=== PATIENT | female | born 1940 | race Caucasian/White ===

== ENCOUNTER 2023-02-24 10:58 | Emergency (ER) | payer OTHER ==
[~2023-02-24] VITALS: Ht 160 cm; Wt 78.5 kg
[~2023-02-24 10:58] MED LIST: AMIT25 PO; ATEN25 PO; CETI10 PO; FURO20 PO; HYDHCL25 PO; LORA10 PO; METPRE4DP PO; OMEP20ER PO; POTCHL20ER PO; SERT50 PO; Zocor20 MG PO
[2023-02-24 11:38] LABS: BASOPHILS ABSOLUTE AUTO 0.01 K/mm3 (0.00-0.23); BASOPHILS PERCENT AUTO 0 % (0-2); EOSINOPHILS ABSOLUTE AUTO 0.07 K/mm3 (0.00-0.68); EOSINOPHILS PERCENT AUTO 1 % (0-6); Hematocrit 40.4 % (33.0-51.0); Hemoglobin 13.4 g/dL (11.5-16.0); IMMATURE GRAN ABSOLUTE AUTO 0.02 K/mm3 (0.00-0.10); IMMATURE GRAN PERCENT AUTO 0 % (0-1); LYMPHOCYTES ABSOLUTE AUTO 0.99 K/mm3 (0.84-5.20); LYMPHOCYTES PERCENT AUTO 15 % (21-46); MONOCYTES PERCENT AUTO 8 % (4-13); Mean Corpuscular HGB 30.7 pg (26.0-34.0); Mean Corpuscular HGB Conc 33.2 g/dL (31.5-36.5); Mean Corpuscular Volume 93 fL (80-100); Mean Platelet Volume 10.7 fL (9.1-12.4); NEUTROPHILS ABSOLUTE AUTO 4.84 K/mm3 (1.96-9.15); NEUTROPHILS PERCENT AUTO 75 % (41-73); Platelet Count 215 K/mm3 (150-400); RDW Coefficient Variation 12.6 % (11.7-14.2); Red Blood Cell Count 4.36 M/mm3 (3.80-5.20); White Blood Cell Count 6.43 K/mm3 (4.00-11.30)
[2023-02-24 12:07] LABS: Albumin, Blood 3.1 g/dL (3.4-5.0); Bilirubin, Total 0.3 mg/dL (0.1-1.0); Bun/Creatinine Ratio 22.9 (12.0-20.0); Calcium, Blood 8.7 mg/dL (8.5-10.1); Creatinine, Blood 0.7 mg/dL (0.40-1.00); Globulin, Blood 3.1 g/dL (2.2-4.0); Potassium, Blood 4.7 mmol/L (3.5-5.5); Total Protein, Blood 6.2 g/dL (6.4-8.2)
[2023-02-24 13:00] VITALS: BP 106/52
--- NOTE | 2023-02-24 15:28 | NUR ---
Pt. is awake in ED bed, friend at bedside invites this brass pourer to meet the Pt. Pt. displays evidence of being [place], and best communication happens with a s small legal pad. With these limitations a life review was facilitated. Considered matters of judy and belief. Pt. is pleasant but unsettled about the results of xrays on her hip. Prayed with Pt. Pt. verbalized gratitude for the spiritual care visit.
== END 2023-02-24 15:26 | disposition home or self-care (01) ==
LOC: ER 10:58
PROVIDERS: Student in an Organized Health Care Education/Training Program
DX: R42 Dizziness and giddiness (principal); I95.9 Hypotension, unspecified; T50.2X5A Adverse effect of carbonic-anhydrase inhibitors, benzothiadiazides and other diuretics, initial encounter; S70.01XA Contusion of right hip, initial encounter; S40.012A Contusion of left shoulder, initial encounter; S40.022A Contusion of left upper arm, initial encounter; I10 Essential (primary) hypertension; Z79.899 Other long term (current) drug therapy
CPT/HCPCS: 73030; 73502; 80053; 84484; 85025; 93005; 93010; 99284-25; A9270; J7030

== ENCOUNTER → 2023-03-12 | Outpatient (CLI) | payer OTHER | LOC: LAB SHORT 11:00 → LAB 11:00 | DX: R30.0 Dysuria (principal) | CPT/HCPCS: 87077; 87086; 87186 ==

== ENCOUNTER 2023-09-16 11:47 | Emergency (ER) | payer OTHER ==
[~2023-09-16] VITALS: Ht 160 cm; Wt 85.7 kg
[~2023-09-16 11:47] MED LIST changes: +MECL25 PO; +METO25 PO
[2023-09-16 11:51] VITALS: BP 172/68
[2023-09-16] MEDS ORDERED: Acetaminophen 325 MG TABLET PO ONE (13:40)
== END 2023-09-16 13:59 | disposition home or self-care (01) ==
LOC: ER 11:47
DX: S09.90XA Unspecified injury of head, initial encounter (principal); W01.0XXA Fall on same level from slipping, tripping and stumbling without subsequent striking against object, initial encounter; Z87.891 Personal history of nicotine dependence; Z79.899 Other long term (current) drug therapy; Z88.2 Allergy status to sulfonamides; Z88.5 Allergy status to narcotic agent; Z88.1 Allergy status to other antibiotic agents; Z91.018 Allergy to other foods
CPT/HCPCS: 70450; 99284-25; A9270

== ENCOUNTER → 2023-10-17 | Outpatient (CLI) | payer OTHER | END | disposition home or self-care (01) | LOC: LAB SHORT 11:28 | DX: R82.998 Other abnormal findings in urine (principal) | CPT/HCPCS: 87077; 87086; 87186 ==

== ENCOUNTER 2024-07-17 14:28 | Emergency (ER) | payer OTHER ==
[~2024-07-17] VITALS: Ht 160 cm; Wt 100.2 kg
[2024-07-17] MEDS ORDERED: PEPCID40 MG PO (14:47)
[2024-07-17] MEDS ORDERED: AMITRIPTYLINE H25 MG PO (14:50)
[2024-07-17] MEDS ORDERED: METOPROLOL SUCC25 MG PO (14:50)
[2024-07-17] MEDS ORDERED: OMEP20ER PO (14:51)
[2024-07-17] MEDS ORDERED: Simvastatin20 MG PO (14:52)
[2024-07-17] MEDS ORDERED: ZOLOFT10013 PO (14:52)
[2024-07-17] MEDS ORDERED: Morphine Sulfate 4 MG/1 ML Injection IV ONE (15:15)
[2024-07-17] MEDS ORDERED: Methocarbamol 500 MG Tab PO ONE (15:15)
[2024-07-17 16:20] VITALS: BP 171/65
[2024-07-17] MEDS ORDERED: Ketorolac Tromethamine 30mg Vial IV ONE (16:45)
[2024-07-17] MEDS ORDERED: Morphine Sulfat15 MG PO (17:32)
[2024-07-17] MEDS ORDERED: Morphine Sulfate IR 15 MG Tab PO ONE (17:35)
== END 2024-07-17 18:09 | disposition home or self-care (01) ==
LOC: ER 14:28
DX: S42.025A Nondisplaced fracture of shaft of left clavicle, initial encounter for closed fracture (principal); S09.90XA Unspecified injury of head, initial encounter; I10 Essential (primary) hypertension; M47.812 Spondylosis without myelopathy or radiculopathy, cervical region; W01.0XXA Fall on same level from slipping, tripping and stumbling without subsequent striking against object, initial encounter; Z88.2 Allergy status to sulfonamides; Z88.8 Allergy status to other drugs, medicaments and biological substances; Z91.018 Allergy to other foods; Z79.899 Other long term (current) drug therapy; Z87.891 Personal history of nicotine dependence
CPT/HCPCS: 70450; 72125; 73030; 73080; 73110; 96374; 96375; 99284-25; A9270; J1885; J2270